=== PATIENT | male | born 2000 | race Hispanic/Latino ===

== ENCOUNTER → 2024-08-29 | Day surgery (SDC) | payer OTHER ==
[~2024-08-29] MED LIST: AMOXICILLIN500 MG PO; CETIRIZINE HCL10 MG PO; PANTOPRAZOLE SO40 MG PO; PREDNISONE10 MG PO; SUCRALFATE1 GM PO
[2024-08-29] MEDS: LACTATED RINGER'S 1,000 ML ONE (10:29)
[2024-08-29 12:11] VITALS: BP 142/86; PULSE 86; RESP 17; O2SAT 98
== END | disposition home or self-care (01) ==
LOC: OR 09:00
PROVIDERS: ATTEND Internal Medicine Gastroenterology
DX: K92.0 Hematemesis (principal); K29.50 Unspecified chronic gastritis without bleeding; K20.90 Esophagitis, unspecified without bleeding; K21.9 Gastro-esophageal reflux disease without esophagitis; K44.9 Diaphragmatic hernia without obstruction or gangrene; Z86.0100 Personal history of colon polyps, unspecified; K59.00 Constipation, unspecified; A04.8 Other specified bacterial intestinal infections; R74.8 Abnormal levels of other serum enzymes; K76.0 Fatty (change of) liver, not elsewhere classified; K62.5 Hemorrhage of anus and rectum; R70.0 Elevated erythrocyte sedimentation rate; R09.89 Other specified symptoms and signs involving the circulatory and respiratory systems; R80.9 Proteinuria, unspecified; R03.0 Elevated blood-pressure reading, without diagnosis of hypertension; Z68.42 Body mass index [BMI] 45.0-49.9, adult
CPT/HCPCS: 43239; 88305; 88342; J7121

== ENCOUNTER → 2024-10-26 | Outpatient (REF) | payer OTHER ==
[~2024-10-26] MED LIST changes: +IOPAMIDOL 370 MG/ML 100 ML INFUS..BTL INJ ONE
== END ==
LOC: CT 15:39
PROVIDERS: ATTEND Nurse Practitioner Family
DX: R10.13 Epigastric pain (principal)
CPT/HCPCS: 74177; Q9967